=== PATIENT | male | born 1985 | race Caucasian/White ===

== ENCOUNTER → 2018-01-23 08:39 | Outpatient (CLI) | payer SELFPAY ==
--- NOTE | 2018-01-22 15:00 | VAS_PTH ---
PATIENT: VIRY DE [facility] U#:[id number] AGE/SX: 39/M ROOM: RE01/23/[address]: Dr. Salvador Browne MD : 1985 BED: DIS: SPEC #: [id number] RECD: 01/23/18 07:53 STATUS: SARITA CHANDU #: [id number] JOSH: 01/22/18 15:[address]: Salvador Browne DEPT: SURGICAL PATHOLOGY RECD BY: Raul Zhou Tissues: A - Vas deferens, NOS B - Vas deferens, NOS Procedures: Surgery Specimen Level II HEADER OPERATION: Bilateral partial vasectomy PRE-OP DIAGNOSIS: Sterilization TISSUE SUBMITTED: A - Right vas deferens, B - Left vas deferens MICROSCOPIC DIAGNOSIS A. Right vas deferens, partial vasectomy: Completely transected segment of vas deferens, no pathologic diagnosis. B. Left vas deferens, partial vasectomy: Completely transected segment of vas deferens, no pathologic diagnosis. MARGARITO:kg 01/24/18 MICROSCOPIC DESCRIPTION Slides are reviewed. GROSS DESCRIPTION A - Received is one container designated right vas deferens. The specimen consists of a tubular piece of mojica soft tissue measuring 0.9 cm in length and 0.2 cm in diameter. The entire specimen is submitted in one cassette. It will be serially sectioned at the time of embedding. B - Received is one container designated left vas deferens. The specimen consists of a tubular piece of mojica soft tissue measuring 1 cm in length and 0.2 cm in diameter. The entire specimen is submitted in one cassette. It will be serially sectioned at the time of embedding. / MARGARITO:kg 01/23/18 TC:4 [facility]: 6[address]81 x2
[2018-01-22 16:21] VITALS: BMI 28.2
--- OUTSIDE RECORDS SUMMARY | 2018-03-11 04:24 | XMS RPT_ITS ---
:1985 Author Organization [facility] Care Team Providers Name Role Phone Ashanti Oviedo July Attending Unavailable [place] Ashanti July Admitting Unavailable [place] Ashanti July Primary Care Unavailable [place] Ashanti July Admitting Unavailable [place], Ashanti July Attending Unavailable SlatingtonBonitaAshanti July Primary Care Unavailable Salvador Browne Attending Unavailable Salvador Browne Attending Unavailable Salvador Browne Referring Unavailable Salvador Browne Attending Unavailable Referred, Self Referring Unavailable Salvador Browne Attending Unavailable PROBLEMS PROBLEMS No Problem Records FoundPROCEDURES PROCEDURES No Procedure Records FoundRESULTS RESULTS SURGERY VISIT REPORT Observed: 02/08/2018 Status: F Source: [place] 8:16 AM [facility] [address] [place] [address] [address] [place] [address] OFFICE VISIT Date of Service: 02/07/18 MR#: [id number] Acct: [id number] Name: VIRY DE Rep #: [id number] : 1985 Provider: Salvador Browne MD Age/Sex: 32/M Location: [facility] Status: Signed Intake Intake Visit Reasons: PO Vasectomy 01/22 Chief Complaint: vasectomy Control Integration Engineer Required: No Is patient in pain?: No Allergies No Known Allergies Allergy (Verified 02/07/18 15:23) Medications acetaminophen 300 mg-codeine 30 mg tablet 1 tab PO Q6H PRN #10 tab 01/22/18 [Rx Confirmed 02/07/18] Subjective Details: Patient is doing well after vasectomy. He reports he had some pain for the first 2 days but he is having no pain now. Objective Details: Scrotum is well-healed. There is no swelling Assessment AND Plan Problems 1. Encounter for male sterilization procedure Z30.2 Plan 1. Patient is doing well after vasectomy. He was provided with 2 sample cups for semen samples. I informed him that he is still not considered sterile until 2 samples come back negative for sperm. 2. Follow-up as needed. Salvador Browne MD Pager: [facility] [address] [place] [address] [address] [place] [address] Office: Coding Level of Care Code Global Post Op Diagnoses Encounter for male sterilization procedure Z30.2 02/08/18 0816 <Electronically signed by Salvador Browne MD> Date Salvador Browne MD Cosigner Signature: Date (if applicable) CC: SURGERY VISIT REPORT Observed: 01/22/2018 Status: F Source: [place] 4:21 PM [facility] REPOSITORY [facility] [address] [place], [place] [address] OFFICE VISIT Date of Service: 01/22/18 MR#: [id number] Acct: [id number] Name: VIRY DE Rep #: [id number] : 1985 Provider: Salvador Browne MD Age/Sex: 32/M Location: [facility] Status: Signed Intake Intake Visit Reasons: VASECTOMY Chief Complaint: vasectomy Control Integration Engineer Required: No Is patient in pain?: No Allergies No Known Allergies Allergy (Verified 01/21/18 10:37) Medications acetaminophen 300 mg-codeine 30 mg tablet 1 tab PO Q6H PRN #10 tab 01/22/18 [Rx Confirmed 01/22/18] PFSH Medical History No significant medical problems (Acute) Surgical History History of partial thyroidectomy (Acute 2014) History of vasectomy (Acute 01/2018) Family History Father Cancer melanoma Social History Smoking Status: Never smoker HPI HPI HPI: VIRY DE, is a 32 M who presents to the office today for bilateral vasectomy for sterilization Office Procedures Procedure Time Out Time Out Informed consent given: Yes Consent signed: Yes Time out checklist: patient, procedure, site marked/identified, positioning of patient, supplies available, allergies confirmed, team agrees on procedure Time out staff in room: Yes Time out verified: Yes Time out date: 01/22/18 Time out time: 15:19 Vasectomy Provider Documentation Provider Documentation: Bilateral partial vasectomy Time out and informed consent was obtained. The patient was taken to the procedure room and placed supine on the table. Bilateral scrotal areas were clipper and Betadine prepped. 1% lidocaine mixed 50-50 with 0.5% Marcaine was utilized as a local anesthetic. Less than a total of 10 cc was utilized. Bilateral scrotal incisions were created. Sharp and blunt dissection was used to identify the vas deferens. A segment was cleared, the ends were crushed, and segments were excised. The ends were secured with 3-0 chromic inverted and resecured. The skin edges were approximated with simple sutures of 3-0 chromic. Topical antibiotic ointment and gauze applied. He was given activity and wound care instructions. The specimens are submitted in formalin for analysis. He is scheduled to return to my office in 1 week's time. He has been provided analgesics as prescribed. He is well aware that he has not yet cleared from utilizing other means of control. He is aware that 2 negative consecutive semen counts will be required prior to releasing him from utilizing other means of control. He is aware that this is his responsibility to complete. He has had an opportunity to ask and have questions answered. Blood loss minimal. Specimens segments of vas deferens. Complications none. Vasectomy 11977 Vasectomy Assessment AND Plan Problems 1. Encounter for male sterilization procedure Z30.2 Plan 1. Patient underwent bilateral partial vasectomy in the office. Patient tolerated the procedure well. Salvador Browne MD Pager: [facility] [address] [place] [address], [address] [place] [address] Office: Orders Orders: Medications New: Coding Level of Care Code No Charge Diagnoses Encounter for male sterilization procedure Z30.2 Additional Codes Vasectomy (72145) Comment procedure 01/22/18 1621 <Electronically signed by Salvador Browne MD> Date Salvador Browne MD Cosigner Signature: Date (if applicable) CC: VAS DEFERENS Observed: 01/22/2018 Status: F Source: [place] (STERILIZATION) 3:00 PM [facility] REPOSITORY Patient: VIRY DE : 1985 (32/M) Acct Num: [id number] Phys: Salvador Browne MD Unit Num: [id number] [facility] Specimen: [id number] Received: 01/23/18 - 0753 Spec Type: VAS TISSUES 1 TISSUES: A. Vas deferens, NOS B. Vas deferens, NOS GROSS DESCRIPTION A - Received is one container designated right vas deferens. The specimen consists of a tubular piece of mojica soft tissue measuring 0.9 cm in length and 0.2 cm in diameter. The entire specimen is submitted in one cassette. It will be serially sectioned at the time of embedding. B - Received is one container designated left vas deferens. The specimen consists of a tubular piece of mojica soft tissue measuring 1 cm in length and 0.2 cm in diameter. The entire specimen is submitted in one cassette. It will be serially sectioned at the time of embedding. / MARGARITO:kg 01/23/18 TC:4 CPT: 63419 x2 HEADER OPERATION: Bilateral partial vasectomy PRE-OP DIAGNOSIS: Sterilization TISSUE SUBMITTED: A - Right vas deferens, B - Left vas deferens MICROSCOPIC DESCRIPTION Slides are reviewed. MICROSCOPIC DIAGNOSIS A. Right vas deferens, partial vasectomy: Completely transected segment of vas deferens, no pathologic diagnosis. B. Left vas deferens, partial vasectomy: Completely transected segment of vas deferens, no pathologic diagnosis. SJ:kg 01/24/18 Signed Trevon Acuna 01/24/18 <signature on file> Performed By: #### PVAS #### [facility] [address] [place], [address] SURGERY VISIT REPORT Observed: 01/22/2018 Status: F Source: [place] 1:30 PM [facility] REPOSITORY [facility] [address] [place] [address] OFFICE VISIT Date of Service: 01/21/18 MR#: [id number] Acct: [id number] Name: VIRY DE Rep #: [id number] : 1985 Provider: Salvador Browne MD Age/Sex: 32/M Location: [facility] Status: Signed Intake Vital Signs01/21/18 Height 6 ft 5 in 01/21/18 Weight: 238 lb 4 oz 01/21/18 Body Mass Index (BMI) 28.2 01/21/18 Blood Pressure 138/87 H Intake Visit Reasons: vasectomy Chief Complaint: vasectomy Control Integration Engineer Required: No Is patient in pain?: No Allergies No Known Allergies Allergy (Verified 01/21/18 10:37) Medications lorazepam 2 mg tablet 2 mg PO ONCE #1 tab 01/21/18 [Rx Confirmed 01/21/18] PFSH Medical History No significant medical problems (Acute) Surgical History History of partial thyroidectomy (Acute 2015) Family History Father Cancer melanoma Social History Smoking Status: Never smoker HPI HPI HPI: VIRY DE, is a 32 M who presents to the office today for consultation for vasectomy. The patient reports that he has a child and he and his spouse have discussed this and that he would like a vasectomy. ROS General General: No weight change, appetite, fatigue, colon cancer, breast cancer or weakness HEENT HEENT: No difficulty swallowing, eye injury, eye surgery, swollen glands or hoarseness Endo Endocrine: No thyroid disease, diabetes mellitus, thyroid cancer, Hair loss, heat intolerance or cold intolerance Cardio Cardiovascular: No murmur, pacemaker, heart disease, atrial fibrillation, high blood pressure, heart attack, heart stent, palpitations, shortness of breat with exertion or chest pain Psych Psychiatric: No depression or anxiety Resp Respiratory: No shortness of breath, No sleep apnea, No cough, No COPD, No asthma, No emphysema, No wheezing Gastro Gastrointestinal: No abdominal pain, No nausea or vomiting, No diarrhea, No constipation, No blood in stool, No acid reflux, No hemorrhoids, No ulcers, No gallbladder problem, No black,tarry stools Jose Hematologic: No blood thinners, No blood disorders, No bleeding, No anemia, No blood clots Neuro Neurologic: No weakness Exam Const General: cooperative Orientation: alert, oriented x3 Resp Effort AND Inspection: normal respiratory effort Auscultation: clear to auscultation bilaterally Cardio Rate: regular rate Rhythm: regular rhythm Heart Sounds: no murmurs GI Inspection: non-distended Palpation: soft, nontender Assessment AND Plan Problems 1. Sterilization consult Z30.09 Plan 1. I discussed bilateral partial vasectomy with the patient in detail. I discussed that this would be done in office. I discussed the risks of the procedure including but not limited to bleeding, infection, injury to spermatic cord, spermatocele. I also discussed that this was not 100% guaranteed and there is always a chance for re-fistulization of the vas deferens. I also explained that he was not clear to have unprotected sex until 2 semen samples were obtained and negative for sperm. I explained that I recommend tight fitting underwear and no strenuous activity for 7-10 days. 2. The patient was given a small prescription for Ativan for prior to the procedure. The patient understands all that was explained to him and all questions were answered. The patient will return for bilateral partial vasectomy. Salvador Browne MD Pager: [facility] [address] [place] [address], [address] [place] [address] Office: Medications New: Coding Level of Care Code Off vis,new,level 3 Diagnoses Sterilization consult Z30.09 01/22/18 1330 <Electronically signed by Salvador Browne MD> Date Salvador Browne MD Cosigner Signature: Date (if applicable) CC: XR HAND 3+ VIEWS Observed: 03/20/2017 Status: F Source: NEMO RIGHT 11:36 AM [facility] REPOSITORY Exam Date/Time: 03/20/2017 11:40 EST Reason for Exam: Fall Report XR HAND THREE+ VIEWS RIGHT, 03/20/2017 11:36 AM CLINICAL STATEMENT: Fall three days ago. COMPARISON: None. FINDINGS: Three views of the right hand were obtained. There is no evidence of acute fracture or dislocation. The joint spaces are maintained. Cortical surfaces are smooth in contour. The wrist is unremarkable as visualized. The soft tissues demonstrate no radiopaque foreign body. IMPRESSION: No acute abnormality of the right hand. FINAL REPORT Dictated: 03/20/2017 3:13 pm Solis Macias MD Signed (Electronic Signature): 03/20/2017 3:13 pm Signed by: Solis Macias MD Technologist: [facility] ALLERGIES DATE TYPE / CODE NAME / CODE REACTION SEVERITY SOURCE 02/07/2018 Drug No Known Unknown [facility] Allergy/416 Allergies/J92358 [facility] 192835(SNOM 0388(RXNORM) Repository ED CT) Drug/065242 No Known [facility] 003(SNOMED [facility]) System Repository ENCOUNTERS ENCOUNTERS ADMIT/DISCHARGE ACCOUNT NUMBER ADMITTING ENCOUNTER LOCATION SOURCE CLASS 02/07/2018/02/08/20 [id number] Ambulatory BMSBuilding: [place] 18 BMS.[facility] Repository 01/23/2018 [id number] Ambulatory [place] [facility] ding:[facility] Repository 01/22/2018/01/23/20 [id number] Ambulatory BMSBuilding: [place] 18 BMS.[facility] Repository 01/21/2018/01/22/20 [id number] Ambulatory BMSBuilding: [place] 18 BMS.[facility] Repository 03/20/2017/03/20/19 [id number] [place] [address] [place] [address] ding:[facility] BANEY Repository 03/20/2017/03/20/19 [id number] [facility] ding:[facility] Repository nt MedicRoom: Room 1 PAYERS PAYERS ENCOUNTER GUARANTOR PAYER SUBSCRIBER SOURCE 02/07/2018 VIRY Pandya Primary Insurance:SELF NOT GIVENUNK [place] [id number] SR PAY INSURANCE[address] Number: Effective Hospital [id number]: (419) Date:2018-02-07 Repository [phone] () 01/23/2018 VIRY Pandya Primary Insurance:SELF NOT GIVENUNK [place] [id number] SR PAY INSURANCE[address] Number: Effective Hospital [id number]: (419) Date:2018-01-23 Repository [phone] () 01/22/2018 VIRY Pandya Primary Insurance:SELF NOT GIVENUNK [place] [id number] SR PAY INSURANCE[address] Number: Effective Hospital [id number]: (419) Date:2018-01-22 Repository [phone] () 01/21/2018 VIRY Pandya Primary Insurance:SELF NOT GIVENUNK [place] [id number] SR PAY INSURANCE[address] Number: Effective Hospital [id number]: (419) Date:2018-01-18 Repository [phone] (HP) 03/20/2017 VIRY Pandya Primary VIRY [place] ALLEMANDOB: [facility] HEALTHCAREPolicy [id number] System [address] Number: Effective [address] Repository [address] [place] [address], [place] Date:2017-03-20 - [address] [place] [phone]: [id number] [phone]: Name:CD:[id number] O BOX (HP) [address] [place] [place] [address] ()Tel: [phone] [place] [phone]: (WP) [phone] 03/20/2017 VIRY Pandya Primary Insurance:[facility] VIRY Eldridge ALLEMANDOB: [facility] ALLEMANDOB: [facility] CAREPolicy Number: [id number] [address] Repository [address] [place] [address], [place] Date:2017-03-[address] [place] [phone]: [phone] [phone]: (HP) Name:CD:[id number] O [phone] [place] [address] (HP)Tel: ([phone]) [facility] [place] [address]BH: [phone] (WP)
== END ==
LOC: LAB 08:43 → LABSPEC 08:52
PROVIDERS: Referring Provider Surgery; Visit Provider Surgery
DX: Z30.2 Encounter for sterilization (principal)
CPT/HCPCS: 88302

== ENCOUNTER → 2018-03-06 13:05 | Outpatient (CLI) | payer SELFPAY ==
[2018-01-22 16:21] VITALS: BMI 28.2
[2018-03-08 10:20] LABS: Semen Analysis Post Vas PRESENT
--- OUTSIDE RECORDS SUMMARY | 2018-05-08 12:11 | XMS RPT_ITS ---
:1985 Author Organization OHIP Care Team Providers Name Role Phone Oatman, Ashanti July Attending Unavailable Oatman, Ashanti July Admitting Unavailable Oatman, Ashanti July Primary Care Unavailable Oatman, Ashanti July Admitting Unavailable Oatman, Ashanti July Attending Unavailable Oatman, Ashanti July Primary Care Unavailable Salvador Browne Attending Unavailable Salvador Browne Attending Unavailable Salvador Browne Referring Unavailable Salvador Browne Attending Unavailable Referred, Self Referring Unavailable Salvador Browne Attending Unavailable Salvador Browne Attending Unavailable Salvador Browne Referring Unavailable Primay Care Physicia, No Primary Care Unavailable PROBLEMS PROBLEMS No Problem Records FoundPROCEDURES PROCEDURES No Procedure Records FoundRESULTS RESULTS SEMEN ANALYSIS POST Collected: 03/06/2018 Status: C Source: [place] VAS 1:11 PM [facility] [place] [place] CODE TESTS RESULT OUT OF RANGE REFERENCE UNITS LAB L200.1000 Normal SEMEN PRESENT POST VAS Result Comment: CYTOSPIN PREPARATION USED FOR CONCENTRATION OF SPECIMEN PRIOR TO STAINING AND EXAMINATION CRITICAL VALUE VERIFIED. CALLED TO ASIA FRAUSTO 03/06/18 Roberto Garland RESULTS READ BACK BY SAME. Viable sperm not present. Noah Weiss D.O. 03/08/18 AMENDED REPORT 03/08/18 1019 SEMEN POST VAS previously reported as: PRESENT CYTOSPIN PREPARATION USED FOR CONCENTRATION OF SPECIMEN PRIOR TO STAINING AND EXAMINATION CRITICAL VALUE VERIFIED. CALLED TO ASIA FRAUSTO 03/06/18 5913 William Albarado. RESULTS READ BACK BY SAME. Performed By: #### L200.1000 #### [facility] [address] [place] [address]. [place], [place], [id number] SURGERY VISIT REPORT Observed: 02/08/2018 Status: F Source: GYPSUM 8:16 AM [facility] [place] [facility] [address] [place] [address]. [address] [place] [address] OFFICE VISIT Date of Service: 02/07/18 MR#: [id number] Acct: [id number] Name: VIRY DE Rep #: [id number] : 1985 Provider: Salvador Browne MD Age/Sex: 32/M Location: [facility] Status: Signed Intake Intake Visit Reasons: PO Vasectomy 01/22 Chief Complaint: vasectomy Twill Cutter Required: No Is patient in pain?: No [...] Follow-up as needed. Salvador Browne MD Pager: [facility] [address] [place] [address], [address] [place] [address] Office: Coding Level of Care Code Global Post Op Diagnoses Encounter for male sterilization procedure Z30.2 02/08/18 0816 <Electronically signed by Salvador Browne MD> Date Salvador Browne MD Cosigner Signature: Date (if applicable) CC: SURGERY VISIT REPORT Observed: 01/22/2018 Status: F Source: GYPSUM 4:21 PM [facility] [place] [facility] [address] [place] [address] [address] [place] [address] OFFICE VISIT Date of Service: 01/22/18 MR#: [id number] Acct: [id number] Name: VIRY DE Rep #: [id number] : 1985 Provider: Salvador Browne MD Age/Sex: 32/M Location: [facility] Status: Signed Intake Intake Visit Reasons: VASECTOMY Chief Complaint: vasectomy Twill Cutter Required: No Is patient in pain?: No [...] segments of vas deferens. Complications none. Vasectomy 42361 Vasectomy Assessment AND Plan Problems 1. Encounter for male sterilization procedure Z30.2 Plan 1. Patient underwent bilateral partial vasectomy in the office. Patient tolerated the procedure well. Salvador Browne MD Pager: [facility] [address] [place] [address], [address] [place] [address] Office: Orders Orders: Medications New: Coding Level of Care Code No Charge Diagnoses Encounter for male sterilization procedure Z30.2 Additional Codes Vasectomy (50017) Comment procedure 01/22/18 1621 <Electronically signed by Salvador Browne MD> Date Salvador Browne MD Cosigner Signature: Date (if applicable) CC: VAS DEFERENS Observed: 01/22/2018 Status: F Source: GUZMAN (STERILIZATION) 3:00 PM [facility] [place] Patient: VIRY DE : 1985 (32/) Acct Num: [id number] Phys: Pavan SANCHEZ,Salvador Unit Num: [id number] Loc: [facility] Specimen: [id number] Received: 01/23/18 - 0753 Spec Type: VAS [...] of embedding. / MARGARITO:kg 01/23/18 TC:4 CPT: 60535 x2 HEADER OPERATION: Bilateral partial vasectomy PRE-OP DIAGNOSIS: Sterilization TISSUE SUBMITTED: A - Right vas deferens, B - Left vas deferens MICROSCOPIC DESCRIPTION Slides are reviewed. MICROSCOPIC DIAGNOSIS A. Right vas deferens, partial vasectomy: Completely transected segment of vas deferens, no pathologic diagnosis. B. Left vas deferens, partial vasectomy: Completely transected segment of vas deferens, no pathologic diagnosis. MARGARITO:kg 01/24/18 Signed Trevon Acuna 01/24/18 <signature on file> Performed By: #### PVAS #### [facility] [address] [place], [address] SURGERY VISIT REPORT Observed: 01/22/2018 Status: F Source: GYPSUM 1:30 PM [facility] [place] [facility] [address] [place] [address] OFFICE VISIT Date of Service: 01/21/18 MR#: [id number] Acct: [id number] Name: VIRY DE Rep #: [id number] : 1985 Provider: Salvador Browne MD Age/Sex: 32/M Location: [facility] Status: Signed Intake Vital Signs01/21/18 Height 6 ft 5 in 01/21/18 Weight: 238 lb 4 oz 01/21/18 Body Mass Index (BMI) 28.2 01/21/18 Blood Pressure 138/87 H Intake Visit Reasons: vasectomy Chief Complaint: vasectomy Twill Cutter Required: No Is patient in pain?: No Allergies No Known Allergies Allergy (Verified 01/21/18 10:37) Medications lorazepam 2 mg tablet 2 mg PO ONCE #1 tab 01/21/18 [Rx Confirmed 01/21/18] PFSH Medical History No significant medical problems (Acute) Surgical History History of partial thyroidectomy (Acute 2014) Family History Father Cancer melanoma Social History [...] Assessment AND Plan Problems 1. Sterilization consult Plan 1. I discussed bilateral partial vasectomy [...] bilateral partial vasectomy. Salvador Browne MD Pager: [facility] [address] [place] [address], [address] [place] [address] Office: Medications New: Coding Level of Care Code Off vis,new,level 3 Diagnoses Sterilization consult Z01/22/18 1330 <Electronically signed by Salvador Browne MD> Date Salvador Browne MD Cosigner Signature: Date (if applicable) CC: XR HAND 3+ VIEWS Observed: 03/20/2017 Status: F Source: NEMO PRYOR 11:[address] [facility] REPOSITORY Exam Date/Time: 03/20/2017 11:40 EST Reason [...] pm Signed by: Solis Macias MD Technologist: L ALLERGIES ALLERGIES DATE TYPE / CODE NAME / CODE REACTION SEVERITY SOURCE 02/07/2018 Drug No Known Unknown [facility] Allergy/416 Allergies/H04261 Hospital 043732(SNOM 0388(RXNORM) Repository ED CT) Drug/614915 No Known Sikh 003(SNOMED Allergies [facility]) System Repository ENCOUNTERS ENCOUNTERS ADMIT/DISCHARGE ACCOUNT NUMBER ADMITTING ENCOUNTER LOCATION SOURCE CLASS 03/06/2018 [id number] Ambulatory [facility] ding:[facility] Repository 02/07/2018/02/08/20 [id number] Ambulatory [facility]: [place] [facility] Repository 01/23/2018 [id number] [facility]ulatory [facility] ding:[facility] Repository 01/22/2018/01/23/20 [id number] Ambulatory [facility]MS[facility]: [place] [facility] Repository 01/21/2018/01/22/20 [id number] Ambulatory BMSBuilding: [place] [facility] Repository 03/20/2017/03/20/19 [id number] Oatman, [address] ding:[facility] BANEY Repository 03/20/2017/03/20/[id number] ding:Jose Repository nt MedicRoom: Room 1 PAYERS PAYERS ENCOUNTER GUARANTOR PAYER SUBSCRIBER SOURCE 03/06/2018 VIRY Pandya Primary Insurance:SELF NOT GIVENUNK [place] [id number] PAY [address] Number: Effective Hospital [id number]: (419) Date:2018-03-06 Repository [phone] () 02/07/2018 VIRY Pandya Primary Insurance:SELF NOT GIVENUNK [place] [id number] SR PAY INSURANCE[address] [place] Number: Effective Hospital [id number]: (419) Date:2018-02-07 Repository [phone] () 01/23/2018 VIRY Pandya Primary Insurance:SELF NOT GIVENUNK [place] [id number] SR PAY INSURANCE[address] [place] Number: Effective Hospital [id number]: ([phone]) Date:2018-01-23 Repository [phone] () 01/22/2018 VIRY Pandya Primary Insurance:SELF NOT GIVENUNK [place] [id number] PAY INSURANCE[address] Number: Effective Hospital [id number]: (419) Date:2018-01-22 Repository [phone] () 01/21/2018 VIRY Pandya Primary Insurance:SELF NOT GIVENUNK [place] [id number] PAY INS[address] [place] Number: Effective Hospital [id number]: ([phone]) Date:2018-01-18 Repository [phone] (HP) 03/20/2017 VIRY Pandya Primary VIRY Pandya Sikh ALLEMANDOB: Insurance:STEM ALLEMANDOB: [facility] [id number] [facility] [id number] [facility] Number: Effective [facility] Repository [address] [place] [address] Date:2017-03-[address] [place] [phone]: [id number] [phone]: Name:CD:[id number] () [address] (HP)Tel: [phone] [place] [phone]: ([phone] 03/20/2017 VIRY Pandya Primary Insurance:1500 VIRY Pandya Sikh ALLEMANDOB: [facility] ALLEMANDOB: [facility] [id number] CAREPolicy Number: [id number] Repository [address] [place] [address] Date:2017-03-[address] [place] [phone]: [phone] [phone]: () Name:CD:[id number] O [phone] [address] [place] ()Tel: ([phone]) [place] [address]DK: [phone] (WP)
== END ==
PROVIDERS: Referring Provider Surgery; Visit Provider Surgery
DX: Z30.2 Encounter for sterilization (principal)
CPT/HCPCS: 89321

== ENCOUNTER → 2018-03-27 14:54 | Outpatient (CLI) | payer SELFPAY ==
[2018-01-22 16:21] VITALS: BMI 28.2
[2018-03-28 13:32] LABS: Semen Analysis Post Vas ABSENT
== END ==
PROVIDERS: Referring Provider Surgery; Visit Provider Surgery
DX: Z30.2 Encounter for sterilization (principal)
CPT/HCPCS: 36415; 89321